=== PATIENT | female | born 2005 | race African-American/Black ===

== ENCOUNTER 2023-05-17 02:09 | Emergency (ER) | payer OTHER | END 2023-05-17 03:07 | disposition home or self-care (01) | LOC: CSHERS 02:09 | DX: H57.89 Other specified disorders of eye and adnexa (principal); T78.40XA Allergy, unspecified, initial encounter; H02.843 Edema of right eye, unspecified eyelid; H02.846 Edema of left eye, unspecified eyelid | CPT/HCPCS: 99283 ==

== ENCOUNTER 2025-07-12 20:28 | Emergency (ER) | payer BC, OTHER ==
[2025-07-12] MEDS ORDERED: Fluorescein Opthalmic Strip ONE (20:49)
[2025-07-12] MEDS ORDERED: Proparacaine 0.5% Opth 15 ML BOT ONE (20:49)
== END 2025-07-12 21:09 | disposition home or self-care (01) ==
LOC: CSHERS 20:28
DX: T15.91XA Foreign body on external eye, part unspecified, right eye, initial encounter (principal); I10 Essential (primary) hypertension; Z79.899 Other long term (current) drug therapy; W44.F4XA Insect entering into or through a natural orifice, initial encounter
CPT/HCPCS: 99283